=== PATIENT | male | born 1965 | race Caucasian/White ===

== ENCOUNTER 2021-05-20 15:55 | Emergency (ER) | payer OTHER ==
[2021-05-20] MEDS ORDERED: Ketorolac Tromethamine 60 MG/2 ML VIAL ONE (16:38)
[2021-05-20] MEDS ORDERED: Albuterol 200 PUFF (6.7GM INHALER) ONE (16:42)
[2021-05-21 07:48] LABS: SARS-CoV-2 PCR by NAA DETECTED (NotDetected)
== END 2021-05-20 17:45 | disposition home or self-care (01) ==
LOC: MADERS 15:55
DX: U07.1 COVID-19 (principal)
CPT/HCPCS: 71045; 96372; J1885; J7620; U0003; U0005

== ENCOUNTER 2025-07-26 15:15 | Emergency (ER) | payer OTHER ==
[~2025-07-26 15:15] MED LIST: Iopamidol 370 76% 100 ML VIAL ONE
[2025-07-26] MEDS ORDERED: Pantoprazole 40 MG VIAL ONE (16:52)
[2025-07-26] MEDS ORDERED: Ondansetron PF 4 MG/2 ML Vial ONE (16:52)
[2025-07-26 16:53] LABS: ALT (SGPT) 26 U/L (Less than 45); AST (SGOT) 27 U/L (11-34); Albumin 3.6 g/dL (3.1-4.5); Alkaline Phosphatase 53 U/L (40-110); Anion Gap 15 mmol/L (10-20); BUN (Urea Nitrogen) 47 mg/dL (8.4-25.7); Bilirubin, Total 0.3 mg/dL (0.3-1.2); Calc. Creatinine Clearance 0 mL/min (70-130); Calcium 8.8 mg/dL (7.8-10.44); Carbon Dioxide 20 mmol/L (22-29); Chloride 110 mmol/L (98-107); Globulin 2.6 g/dL (2.4-3.5); Glucose 161 mg/dL (70-105); Lipase 30 U/L (8-78); Potassium 4.5 mmol/L (3.5-5.1); Sodium 140 mmol/L (136-145)
[2025-07-26 17:05] LABS: Anisocytosis SLIGHT = 6-15 cells (100X) (0-5/hpf); Hematocrit 23.0 % (42.0-52.0); Hemoglobin 7.9 g/dL (14.0-18.0); MDiff Complete? YES; Mean Corpuscular Hemoglobin 33.3 pg (27.0-31.0); Mean Corpuscular Volume 97.5 fl (78.0-98.0); Platelet Adequacy Comment Appears Increased; Platelet Count 426 10x3/uL (130-400); Red Blood Cell (RBC) Count 2.36 mill/uL (4.70-6.10); White Blood Cell (WBC) Count 18.7 10x3/uL (4.8-10.8)
[2025-07-26 17:13] LABS: INR-International Normal Ratio 1.0; PTT 27.0 sec (22.9-36.1); Prothrombin Time 13.7 sec (12.0-14.7)
[2025-07-26 18:54] LABS: Glucose, Urine (Dipstick) Negative (Negative); Leukocyte Negative (Negative); Protein, Urine (Dipstick) Negative (Neg-Trace); Specific Gravity, Urine 1.010 (1.005-1.030)
[2025-07-26 18:58] LABS: CAUTI Indications for Culture Dysuria,urgency,freq; RBC/HPF 0-3 HPF (0-3); WBC/HPF 0-3 HPF (0-3)
[2025-07-26 18:59] LABS: Bacteria/HPF Rare-Few HPF (None Seen); Urine Culture Reflex No No
[2025-07-26 19:40] LABS: Hematocrit 20.8 % (42.0-52.0); Hemoglobin 6.9 g/dL (14.0-18.0)
== END 2025-07-26 23:20 | disposition short-term general hospital (02) ==
LOC: MADERS 15:15
DX: K92.2 Gastrointestinal hemorrhage, unspecified (principal); D64.9 Anemia, unspecified; E27.8 Other specified disorders of adrenal gland
CPT/HCPCS: 36415; 74177; 80053; 81001; 82274; 83690; 85025; 85610; 85730; 86850; 86900; 86901; 93005; 94760; 96361; 96374; 96375; J2470; J7120; Q9967